=== PATIENT | female | born 1980 | race Caucasian/White ===

== ENCOUNTER 2022-06-23 02:47 | Observation (INO) ==
[2022-06-23] MEDS ORDERED: ASPIRIN 325 MG TABLET PO STA (03:05)
[2022-06-23] MEDS ORDERED: NITROGLYCERIN 2% OINT 1 INCH/GM PACK TOP STA (03:05)
[2022-06-23] MEDS ORDERED: ONDANSETRON 4 MG/2 ML VIAL IV STA (03:05)
[2022-06-23] MEDS ORDERED: ALUM/MAG/SIMETH/LIDO VISC 1:1 30 ML BOTTLE PO STA (03:05)
[2022-06-23] MEDS ORDERED: MORPHINE 2 MG/1 ML SYRINGE IV STA (03:05)
[2022-06-23 03:20] LABS: Basophils % 0.6 % (0.0-0.8); Eosinophils # 0.1 10*3/uL (0.0-0.87); Eosinophils % 1.4 % (0.00-10.9); Hematocrit 37.2 VOL% (35.7-47.0); Hemoglobin 12.5 GM/DL (12.0-16.0); Immature Granulocytes % 0.6 %; Immature Granulocytes Absolute 0.04 #; Lymphocytes # 2.5 10*3/uL (1.4-4.0); Lymphocytes % 35.4 % (21.3-54.2); Mean Corpuscular HGB Conc 33.6 GM/DL (32-36); Mean Corpuscular Volume 84.5 FL (87-102); Mean Platelet Volume 8.9 FL (9.6-12.0); Monocytes # 0.6 10*3/uL (0.11-0.8); Monocytes % 8.1 % (1.7-12.7); Neutrophils % 53.9 % (38.7-73.9); Platelet Count 282 T/CUMM (130-400); Red Cell Distribution Width 13.2 % (9.3-17.3); White Blood Count 7.1 T/CUMM (4-12)
[2022-06-23 03:33] LABS: INR 0.9; PT Patient Result 9.9 SECS (10.1-12.1)
[2022-06-23] MEDS ORDERED: KETOROLAC 30 MG/1 ML VIAL IV STA (03:42)
[2022-06-23 03:44] LABS: Alanine Aminotransferase 17 U/L (13-56); Albumin 3.9 G/DL (3.4-5.0); Alkaline Phosphatase 98 U/L (45-117); Aspartate Amino Transferase 9 U/L (0-37); Bilirubin,Total < 0.39 MG/DL (0.20-1.00); Blood Urea Nitrogen 14 MG/DL (7-18); Calcium 9.4 MG/DL (8.5-10.1); Carbon Dioxide 29 MMOL/L (21-32); Chloride 106 MMOL/L (98-107); Glucose 175 MG/DL (74-106); Osmolality,Calculated 279.7 MOS/KG (273-304); Potassium 3.9 MMOL/L (3.5-5.1); Sodium 138 MMOL/L (136-145); Total Protein 6.8 G/DL (6.4-8.2)
[2022-06-23] MEDS ORDERED: ENOXAPARIN 100 MG/ML SYRINGE SUBCUT STA (03:48)
[2022-06-23] MEDS ORDERED: MORPHINE 2 MG/1 ML SYRINGE IV PRN (04:25)
[2022-06-23] MEDS ORDERED: ACETAMINOPHEN 325 MG TABLET PO PRN (04:25)
[2022-06-23] MEDS ORDERED: GLUCAGON 1 MG VIAL IM PRN (04:25)
[2022-06-23] MEDS ORDERED: ONDANSETRON 4 MG/2 ML VIAL IV PRN (04:25)
[2022-06-23] MEDS ORDERED: DEXTROSE 10% 250 ML BAG IV PRN (05:06)
[2022-06-23] MEDS ORDERED: SODIUM CHLORIDE 0.9% 1,000 ML IV SCH (05:30)
[2022-06-23] MEDS ORDERED: ENOXAPARIN 100 MG/ML SYRINGE SUBCUT SCH (06:00)
[2022-06-23] MEDS: INSULIN REGULAR 100 UNIT/ML SUBCUT SCH ×2 (06:01→12:20)
[2022-06-23 08:41] LABS: Risk Ratio 2.61; VLDL Cholesterol 20.6 MG/DL
[2022-06-23] MEDS ORDERED: PANTOPRAZOLE 40 MG TABLET PO SCH (09:00)
[2022-06-23] MEDS ORDERED: ASPIRIN EC 325 MG TABLET PO SCH (09:00)
[2022-06-23] MEDS ORDERED: DOCUSATE SODIUM 100 MG CAPSULE PO SCH (09:00)
[2022-06-23 12:26] VITALS: BP 103/66
[2022-06-24] MEDS ORDERED: ASPIRIN EC 81 MG TABLET PO SCH (09:00)
[2022-06-24] MEDS ORDERED: ROSUVASTATIN 20 MG TABLET PO SCH (09:00)
== END 2022-06-23 13:40 | disposition designated cancer center or children's hospital (05) ==
LOC: N.2W 02:47 → N.ED 02:47 → N.2W 04:18
PROVIDERS: ADMIT Family Medicine; ATTEND Family Medicine